=== PATIENT | female | born 1955 | race Hispanic/Latino ===

== ENCOUNTER → 2019-07-03 | Day surgery (SDC) | payer MEDICARE ==
[~2019-07-03] MED LIST: CARAFATE1 GM/10 ML PO; FENTANYL CITRATE/PF 100MCG/2 ML INJ ONE; GABAPENTIN300 MG PO; GLIMEPIRIDE2 MG PO; HYDROCHLOROTHIA25 MG PO; LETROZOLE2.5 MG PO; LIDOCAINE HCL 2% LOCAL INJ 5 ML SDV VIAL INJ ONE; LISINOPRIL10 MG PO; METFORMIN HCL850 MG PO; METOCLOPRAMIDE HCL 10 MG/2ML VIAL ONE; METOPROLOL TART50 MG PO; MIDAZOLAM HCL 2 MG/2 ML VIAL ONE; PANTOPRAZOLE SO40 MG PO; PROPOFOL IV EMULSION 10 MG/ML 50 ML VIAL ONE; REGLAN10 MG PO; ULTRAM50 MG PO; XARELTO20 MG PO
--- OUTSIDE RECORDS SUMMARY | 2019-07-03 08:08 | XMS REPORT ---
Author [facility] Address Unknown Phone Unavailable Care Team Providers Care Carpenter Ship Name Role Phone BAORN MORAES Unavailable Unavailable Payers Payer Name Policy Type Policy Number Effective Date Expiration Date Problems This patient has no known problems. Allergies, Adverse Reactions, Alerts Allergy Name Allergy Type Status Severity Reaction(s) Onset Date Inactive Date Treating Clinician Comments No Known Allergies DA Active U 2013-09-14 00:00:00 Medications This patient has no known medications. Encounters Start Date/Time End Date/Time Encounter Type Admission Type Attending Clinicians Care Facility Care Department Encounter ID 2019-01-24 06:39:00 2019-01-24 06:39:00 [facility] [id number] Results Test Description Test Time Test Comments Text Results Atomic Results Result Comments GLUBED 2018-10-18 13:41:00 GLUBED (test code=GLUBED) 109 mg/dL 74-106 Performed by certified photo booth operator at [facility] BASIC METABOLIC [id number] 11:28:00* Test Item Value Reference Range Comments SODIUM (test code=NA) 145 mmol/L 136-145 POTASSIUM (test code=K) 3.5 mmol/L 3.5-5.1 CHLORIDE (test code=CL) 113.0 mmol/L 98-107 CARBON DIOXIDE (test code=CO2) 24.0 mmol/L 21-32 ANION GAP (test code=GAP) 11.5 10-20 GLUCOSE (test code=GLU) 91 mg/dL 74-106 BLOOD UREA NITROGEN (test code=BUN) 29 mg/dL 7-18 GLOMERULAR FILTRATION RATE (test code=GFR) 50 mL/min >=60 Estimated GFR by using Modified MDRD formula.Chronic kidney disease is defined as either kidney damageor GFR <60 mL/min/1.73 m2 for >3 months. CREATININE (test code=CREAT) 1.10 mg/dL 0.55-1.02 Note change in reference range due to change in reagent. BUN/CREATININE RATIO (test code=BUN/CREA) 26.4 10-20 CALCIUM (test code=CA) 8.9 mg/dL 8.5-10.1 BASIC METABOLIC [id number] 11:21:00* Test Item Value Reference Range Comments SODIUM (test code=NA) 145 mmol/L 136-145 POTASSIUM (test code=K) 3.5 mmol/L 3.5-5.1 CHLORIDE (test code=CL) 113.0 mmol/L 98-107 CARBON DIOXIDE (test code=CO2) mmol/L 21-32 ANION GAP (test code=GAP) 10-20 GLUCOSE (test code=GLU) mg/dL 74-106 BLOOD UREA NITROGEN (test code=BUN) mg/dL 7-18 GLOMERULAR FILTRATION RATE (test code=GFR) mL/min >=60 CREATININE (test code=CREAT) mg/dL 0.55-1.02 BUN/CREATININE RATIO (test code=BUN/CREA) 10-20 CALCIUM (test code=CA) mg/dL 8.5-10.1 CBC W/AUTO [id number] 10:34:00* Test Item Value Reference Range Comments WHITE BLOOD CELL (test code=WBC) 6.6 K/mm3 4.5-12.5 RED BLOOD CELL (test code=RBC) 3.51 mill/mm3 3.7-5.2 HEMOGLOBIN (test code=HGB) 9.4 gram/dL 11.5-15.5 HEMATOCRIT (test code=HCT) 29.7 % 36.0-46.0 MEAN CELL VOLUME (test code=MCV) 84.6 fL 80-98 MEAN CELL HGB (test code=MCH) 26.8 picogram 27.0-33.0 MEAN CELL HGB CONCETRATION (test code=MCHC) 31.6 gram/dL 33.0-36.0 RED CELL DISTRIBUTION WIDTH (test code=RDW) 14.4 % 11.6-16.2 RED CELL DISTRIBUTION WIDTH SD (test code=RDW-SD) 44.3 fL 37.0-51.0 PLATELET COUNT (test code=PLT) 271 K/mm3 150-450 MEAN PLATELET VOLUME (test code=MPV) 10.5 fL 6.7-11.0 NEUTROPHIL % (test code=NT%) 58.6 % 39.0-69.0 IMMATURE GRANULOCYTE % (test code=IG%) 0.2 % 0.0-5.0 LYMPHOCYTE % (test code=LY%) 31.0 % 25.0-55.0 MONOCYTE % (test code=MO%) 8.3 % 0.0-10.0 EOSINOPHIL % (test code=EO%) 1.4 % 0.0-5.0 BASOPHIL % (test code=BA%) 0.5 % 0.0-1.0 NUCLEATED RBC % (test code=NRBC%) 0.0 % 0-0 NEUTROPHIL # (test code=NT#) 3.87 K/mm3 1.8-7.7 IMMATURE GRANULOCYTE # (test code=IG#) 0.01 x10 3/uL 0-0.03 LYMPHOCYTE # (test code=LY#) 2.04 K/mm3 1.0-5.0 MONOCYTE # (test code=MO#) 0.55 K/mm3 0-0.8 EOSINOPHIL # (test code=EO#) 0.09 K/mm3 0.0-0.5 BASOPHIL # (test code=BA#) 0.03 K/mm3 0.0-0.2 NUCLEATED RBC # (test code=NRBC#) 0.00 K/mm3 0.0-0.1 TISSUE [id number] 14:03:00Surgical Pathology Report Case: [id number] Authorizing Provider: Jannet Moraes, Collected: 06/29/2018 08Jevon OLIVA Ordering Location: [facility] Received: 06/29/2018 0846 SERVICES Pathologist: Mercedes Hughes MD Specimens: A) - Lymph Node, Spring, Right Axilla, Right Axillary Spring Lymph Node #1 - 853 B) - Breast, Right, Right breast - long stitch lateral, short stitch superior C) - Breast, Right, right breast upper right lateral margin- stitch young new margin D) - Breast, Right, right breast lower lateral margin- stitch young new margin E) - Breast, Right, right breast medial margin- stitch young new margin A. LYMPH NODE, RIGHT AXILLARY SENTINEL #1, COUNT 853, BIOPSY - ONE LYMPH NODE, NEGATIVE FOR CARCINOMA (0/1)B. BREAST,RIGHT MASTECTOMY - DUCTAL CARCINOMA IN SITU - TUMOR LOCATION : UPPER INNER , CENTRAL AND UPPER OUTER QUADRANTS - GREATEST MACROSCOPIC MEASUREMENT : 66MM - EXTENSIVELY INVOLVING 3 ADJACENT MACROSCOPIC SLICES - NUCLEAR GRADE : 3/3 BY SBR CRITERIA - GROWTH PATTERN : SOLID, CRIBRIFORM, MICROPAPILLARY, PAPILLARY - CENTRAL COMEDO NECROSIS IS IDENTIFIED - ASSOCIATED WITH CALCIFICATIONS - INVOLVING INTRADUCTAL PAPILLOMA - SURGICAL MARGINS : NEGATIVE - ALL MARGINS > 10MM - BIOPSY SITE CHANGES (CLIP X 2) IDENTIFIED - IATROGENIC DISPLACEMENT OF EPITHELIAL CELLS WITHIN BIOPSY SITE - ATYPICAL DUCTAL HYPERPLASIA - FEW SMALL SCATTERED FOCI - ATYPICAL LOBULAR HYPERPLASIA - SMALL FOCUS - USUAL DUCTAL HYPERPLASIA - SMALL PERILOBULAR CAPILLARY HEMANGIOMA - BENIGN BREAST TISSUE ASSOCIATED WITH CALCIFICATIONS - BENIGN SKELETAL MUSCLE - BENIGN SKIN AND NIPPLEC. BREAST, RIGHT UPPER LATERAL MARGIN, EXCISION - SKIN AND UNDERLYING FIBROFATTY TISSUE - NEGATIVE FOR CARCINOMAD. BREAST, RIGHT LOWER LATERAL MARGIN, EXCISION - SKIN AND UNDERLYING FIBR OFATTY TISSUE - NEGATIVE FOR CARCINOMAE. BREAST, RIGHT MEDIAL MARGIN, E XCISION - SKIN AND UNDERLYING FIBROFATTY TISSUE - NEGATIVE FOR CARCINOMA Signing Pathologist Direct Phone Line: [phone] signed by Mercedes Hughes MD on 07/06/2018 at 2:03 PMTUMOR STAGING (P ATHOLOGY) Anatomic site of tumor : Right breastHistologic type : DCIS onlyHistol ogic grade : DCIS only; 3/3 by SBR criteriaTumor size : DCIS only; 66mmPrimary t umor (T) : pTis (DCIS)Lymph node (N) : mZ3Byrrf grouping : 0Margins : NegativeLY MPH NODE SUMMARYTotal # of sentinel lymph nodes : 1Total # of non-sentinel lymph nodes : 0Total # of positive sentinel lymph nodes : 0DCIS OF THE BREAST (Breast DCIS - All Specimens)SPECIMEN Procedure: Total mastectomy Specimen Lat erality: Right TUMOR Tumor Site: Upper outer quadrant Tumor Site: Upper inner quadrant Tumor Site: Central Histologic Type: Ductal car cinoma in situ Size (Extent) of DCIS: Estimated size of DCIS greatest dime nsion in Millimeters (mm) is at least: 66 Millimeters (mm) Architectural Patte rns: Cribriform Architectural Patterns: Micropapillary Architectural Patterns: Papillary Architectural Patterns: Solid Nuclear Grade: Grade III (high) Accessory Findings: Necrosis: Present, central ( expansive "comedo" necrosis) Microcalcifications: Present in DCIS M icrocalcifications: Present in nonneoplastic tissue MARGINS Margins: Uni nvolved by DCIS Distance from Closest Margin in Millimeters (mm): Distan ce is > 10 in Millimeters (mm) Closest Margin: Posterior LYMPH NODES Regional Lymph Nodes: Uninvolved by tumor cells Number of Lymph Nodes Examined: 1 Number of Spring Nodes Examined: 1 PATHOLOGIC STAGE CLASSIFICATION (pTNM, AJCC 8th Edition) TNM Descriptors: Not applicable Primary Tumor (pT): pTis (DCIS) Regional Lymph Nodes (pN): Modifier: (sn): Spring node(s) evaluated Category (pN): pN0 A. 85459 x 1; 78570 x 1B. 00259 x 1C. 84281 x 1D. 44038 x 1E. 84161 x 1Right breast ductal carcinoma in situA. Right axillary sentinel lymph node - 853; B. Right breast; C. Right breast upper right lateral margin; D. Right breast lower lateral margin; E. Right breast medial marginA. Received fresh labeled "right axillary sentinel lymph node 853" consists of a 1.5 x 1 x 0.5 cm, marc-yellow, irregular, soft tissue; one lymph node is identified measuring 1.2 x 0.6 x 0.5 cm. The lymph node is bisected along its long axis, and one touch prep is made for frozen diagnosis as TPA. The entire lymph node is submitted for permanent as A1. ?/ewB. Received fresh labeled with patient's name and "scotht Breast" is a 700 gm simple mastectomy specimen, 17 x 22.5 x 3.5 cm with an unremarkable skin ellipse measuring 20 x 13.5 cm, with everted nipple. The specimen is serially sectioned from medial to lateral into 10 slices. The nipple is in slice #3. The size of the nipple is 0.7 x 0.7 x 0.7 cm. The areolar size is 3 x 2 cm. A 4 x 7 x 7 cm ill-defined fibrotic firm area is present in slices 2 to 5. It is 2 cm away from the deep margin, 3 cm away from the superficial superior margin, 3.5 cm away from the superficial inferior margin. The fibrotic area does not involve the skin. Two clips are identified. One ribbon-shaped clip is identified in slice 2. One E-shaped clip is identified in slice #3. The remaining normal breast tissue is composed of 80% of adipose tissue and 20% of fibrous tissue. Ink code: blue, superficial superior, red, superficial inferior; black deep. Section code: B1 to B2, slice #1B3 to B4, slice #2B5 to B10, fibrotic area in slice #2, clip is identified in B7B11 to B18, fibrotic firm area in slice #3. Clip is identified in cassette B13B19 to B20, nipple hulmhormD80 to B29, fibrotic area in slice #4B30 to B38, fibrotic firm area in slice #5B39 to B41, area adjacent to the firm area in slice #5 and slice #6B42 to B43, leather goods sales representative sections of normal breast in slice #7 and #9B44 to B45, margins slice 2B46 to B47, margins slice 3B48 to B49, margins slice 4 Part C: Received i n formalin labeled as "breast, right" consists of a 5 x 3 x 1.8 cm triangle-shap ed breast tissue with attached skin with a stitch young the new margin. The new margin is right breast, upper right lateral margin. Ink code: true margin black. Opposite side of the true margin: yellow. Tissue is serially sectioned and repr esentative sections are submitted in cassettes C1 to C4. Part D: [facility] labeled as "right breast lower lateral margin, stitch young new margin" i s a 6 x 4 x 1.5 cm triangular shaped breast tissue with attached skin. The stitc h side is inked black. The opposite side is inked yellow. The tissue is serially sectioned and leather goods sales representative sections are submitted in cassettes D1 to D4. Part E: Received in formalin labeled as "right breast medial margin, stitch young new margin" is a 4 x 2.5 x 1 cm triangular shaped breast tissue with attached skin. True margin is inked black. The opposite side is inked yellow. The tissue is s erially sectioned and leather goods sales representative sections are submitted in cassettes E1 to E 4. YY/Dorie. TOUCH PREP LYMPH NODE, RIGHT AXILLARY SENTINEL NODE 853 BIOPSY: - NO METASTATIC CARCINOMA IDENTIFIED ON TOUCH PREP The result is reported by Dr. Mark mcmanus to Dr. Moraes at 10:08 a.m. on June 29, 2018.A-E. Performed.[facility], Department of Pathology, [address] [place] [address], [place] [address], CLJQ-GLUCOSE [id number] 11:08:00* Test Item Value Reference Range Comments POC-GLUCOSE METER (BEAKER) (test rida=5537) 114 mg/dL 70-110 TESTED AT [place] [address] POCT-GLUCOSE [id number] 06:24:00* Test Item Value Reference Range Comments POC-GLUCOSE METER (BEAKER) (test zcyt=3989) 112 mg/dL 70-110 TESTED AT [place] [address] SENTINEL NODE INJECTION, [id number] 15:23:00Reason for exam:->Right breast stage 0 breast cancerFINAL REPORT PROCEDURE: SENTINEL NODE LOCALIZATION - NON IMAGING INDICATION: Right breast cancer PROTOCOL: A total of 4.3 mCi of filtered Tc-99m Lymphoseek was injected intradermally in divided aliquots in the periareolar region of the right breast by the nuclear powerplant mechanic helper. IMPRESSION: Radiopharmaceutical injection for intraoperative sentinel node localization. Signed: Eleno Padilla MDReport Verified Date/Time: 06/28/2018 15:23:01 Reading Location: [address] [place] [address] Reading Room [id number] 12:48:00 RUN DATE: 03/07/18 [facility] PAGE 1 RUN TIME: 1249 Specimen Inqui ry RUN USER: INTERFACE PATIENT: ZORAIDA BLANDON ACCT #: V [id number] LOC: BgHiroHERMINIAU U #: [id number] AGE/SX: 62/F ROOM: RE03/01/18REG DR: French Casillas MD : 56 BED: DIS: STATUS: [facility] TLOC: SPEC #: [id number] RECD: 03/01/18 STATUS: SOUT REQ #: [id number] LUZ: 03/01/18- SUBM DR: French Casillas MD ENTERED: 03/01/18 SP TYPE: STOMACH OTHR DR: Trell Forde MD ORDERED: GROSS COPIES TO: Trell Forde MD [address] [place] [address] French Casillas MD [address] [place] [address] PROCEDURES: GROSS (02/11 04/29-1236) TISSUES: 1. ANASTOMOSIS - BX 2. GASTRIC ULCER - REHAN YP CLINICAL HISTORY COLLECTION DATE: 03/01/2018 ANEMIA; HISTOR Y OF MALIGNANT NEOPLASM AT [facility] FINAL DIAGNOSIS Gastric neville stomosis, cold biopsy: CHRONIC GASTRITIS WITH VERY FOCAL ACTIVITY NEGATIVE FOR INTESTINAL METAPLASIA NEGATIVE FOR HELICOBACTER ORGANISMS NEGATIVE FOR MALIGNANCY Gastric polyp, cold biopsy: CHR ONIC GASTRITIS WITH FOCAL ACTIVITY FOCAL HYPERPLASTIC CHANGE, EDEMA AND R EACTIVE EPITHELIAL CHANGE PRESENT NO HELICOBACTER ORGANISMS IDENTIFIED BY GIEMSA OR IMMUNOHISTOCHEMICAL STAINS NEGATIVE FOR MALIGNANCY RRB/alejandro D [phone], [phone], [phone] CONTINUED ON NEXT PAGE RUN DATE: 03/07/18 [facility] PAGE 2 RUN TIME: 1249 Specimen Inquiry RUN USER: INTERFACE SPEC #: [id number] PATIENT: ZORAIDA BLANDON JANNET #[id number] (Continued)-------- ---- MACROSCOPIC Specimen (1) is received in formalin, labeled wit h the patient's name, identified as "anastomosis gastric cold bx", and consist s of multiple fragments of marc-pink biopsy tissue measuring 1.2 cm in aggregat e, entirely submitted as (1) for H E and giemsa stains. Specimen (2) is received in formalin, labeled with the patient's name, identified as "gastric polyp cold bx", and consists of multiple fragments of marc-pink biopsy tissue measuring 0.6 cm in aggregate, entirely submitted as (2) for H E and giemsa st knapp GROSS PERFORMED AT [facility] [address] [place] [address] (p)[phone] MICROSCOPIC MICROSCOPIC PERFORMED AT [facility] All of the stains, including any controls performed, stain appropriately. [facility] [address] [place] [address] (p)[phone] PERFORMING SITE Diagnosis performed at: [facility], [address] [place] [address] Sign ed SIGNATURE ON FILE Johny Franco 03/07/18 1248 - END OF REPORT STOMACH,RESECTION NOT [id number] 13:02:00 RUN DATE: 12/31/17 [facility] PAGE 1 RUN TIME: 1302 Specimen Inqui ry RUN USER: INTERFACE PATIENT: ZORAIDA BLANDON ACCT #: [id number] LOC: ELIZABETH U #: [id number] AGE/SX: 62/F ROOM: [facility] RE12/23/17REG DR: Frederic Cruz MD : 57 BED: A DIS: 12/29/17 STATUS: DIS IN TLOC: SPEC #: [id number] RECD: 12/23/17 STATUS: SHABNAM REQ #: [id number] LUZ: 12/23/17- SUBM DR: Frederic Cruz MD ENTERED: 12/23/17 SP TYPE: STOM NOT OTHR DR: Trell Forde MD, James Le Thanh MD TUMOR REGISTRYORDERED: GROSS COPIES TO: Trell Forde MD [address] [place] [id number] Frederic Cruz MD [address] [facility] [address] [place] [address] Devon Enamorado MD [address] [place] [address] TUMOR RATNA STRY MARKERS: INTRADEPARTMENTAL CONSULT, MALIGNANCY PROCEDURES: GROSS (12/31/17- 1103) TISSUES: 1. VAGUS NERVE POSTERIOR GASTRIC BRANCHES 2. VA CARLIN NERVE ANTERIOR GASTRIC BRANCHES 3. STOMACH, NOS CLINICAL HIS TORY COLLECTION DATE: 12/23/17 STOMACH CANCER COMMENT [employer] Surgical Pathology Cancer Case Summary- Endocrine-Neuroendocrine Tumors of the Stomach Procedure: Partial gastrectomy, distal CO NTINUED ON NEXT PAGE RUN DATE: 12/31/17 [facility] PAGE 2 RUN TIME: 1302 Specimen Inquiry RUN USER: INTERFACE SPEC #: [id number] PATIENT: ZORAIDA BLANDON #[id number] (Continued) COMMENT (Continued) Tumor site: Gastric pylorus Tumor size: Greatest dimension (cm): 0.25 cm Tumor focality: Unifocal 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, Well differentiated neuroendocrine tumor Mitotic rate: Less than 2 mitosis per 2 square mm Ki-67 labeling index: Less than 3% Tumor extension: Tumor involves lamina propria Margins: Proximal ave n: Uninvolved by tumor Distal margin: Invol jose by tumor Omental margin: Uninvolved by tumor Lymphovas cular invasion: Not identified Perineural invasion: Not identified Regional lymph nodes: Number of lymph nodes involved: 0 Number of lymph nodes examined: 17 Pathologic Stage Classification (pTNM, AJCC 8th edition): pT1 pN0 [facility] Approved Surgical Pathology Cancer Case Summary- Gastrointestinal-Stomach Procedure: Partial ga strectomy, distal Tumor site: Not specified Tumor size: ([id number], biopsy, 0.5 cm) Histologic type: No residual tumor present, previous diagnosis of invasive adenocarcinoma Margins: All margins uninvolved by invasive carcinoma and dysplasia, proximal, distal, omental Treatment effect: No known presurgical therapy Lymphovascular invasion: Not identified Pe rineural invasion: Not identified Regional lymph nodes: Number of lymph nodes involved: 0 Number of lymph nodes examined: 17 Pathologic Stage Classification (pTNM, AJCC 8th edition): pT1a pN0 FINAL DIAGNOSIS Nerve, posterior vagus, segmental resection: P ERIPHERAL NERVE TISSUE AND UNREMARKABLE ADIPOSE TISSUE Nerve, anterior vagus, segmental resection: PERIPHERAL NERVE TISSUE AND UNREMARKABLE CARSON POSE TISSUE CONTINUED ON NEXT PAGE -------- ----RUN DATE: 12/31/17 [facility] PAGE 3 RUN TIME: 1302 Specimen Inquiry RUN USER: INTERFACE SPEC #: [id number] PATIENT: ZORAIDA BLANDON #[id number] (Continued) FINAL DIAGNOSIS (Continued) Stomach, subtotal gastrectomy: SLIGHTLY INVAGIN ATED AREA IN GASTRIC MUCOSA SUGGESTIVE OF PREVIOUS BIOPSY, see comment NO RESIDUAL ADENOCARCINOMA IDENTIFIED IN SECTIONS OF GASTRIC TISSUE PROXIMAL AND DISTAL SURGICAL MARGINS OF RESECTION, NEGATIVE FOR ADENO CARCINOMA 2.5 MM FOCUS OF WELL DIFFERENTIATED NEUROENDOCRINE TUMOR (G1) I DENTIFIED AT DISTAL MARGIN OF RESECTION, see microscopic description an d comment NO LYMPHOVASCULAR INVASION IDENTIFIED NO PERINEURAL INVA YAAKOV IDENTIFIED SEVENTEEN LYMPH NODES WITH REACTIVE FEATURES, NEGATIVE FO R MALIGNANCY HYPERPLASTIC CHANGE IDENTIFIED IN THREADING MACHINE OPERATOR SECTIONS OF GASTRIC MUCOSA CLINICAL CORRELATION REQUIRED RRB/sm,k ae A [phone], [phone] MACROSCOPIC The first specimen is received in formalin, labeled with the patient's name, and identified as "post erior vagus". It consists of a marc elongated fragment of tissue measuring 1.2 X 0.3 X 0.2 cm. It is submitted for microscopic examination in cassette (1). The second specimen is received in formalin, labeled with the patient's n zoila, and identified as "anterior vagus". It consists of a pool-marc fragment o f elongated fragment of tissue measuring 0.7 X 0.3 X 0.2 cm. It is submitted in its entirety for microscopic examination in cassette (2). The third s pecimen is received in formalin, labeled with the patient's name, and identifi ed as "subtotal gastrectomy". The specimen consists of a portion of stomach w ith attached adipose tissue and omentum. The stomach segment measures 20.5 cm along the greater curvature and 10 cm along the lesser curvature. The distal and proximal ends of the stomach are open. There is some attached adipose ti ssue along the lesser curvature which measures 7 X 3 X 0.7 cm and adipose tiss ue along the greater curvature which measures up to 28 X 15 X 2 cm. The speci men is opened along the greater curvature. It will be allowed to fix before s ampling. A small slightly depressed area is identified 6.2 cm from the pr oximal margin of resection and 8.0 cm from the distal margin of resection. Th e base of this area is slightly erythematous. This area measures 0.5 X 0.4 cm in diameter. After fixation the mucosal surface is marc with unremarkable folds. A very subtle prominent fold is seen 2 cm from the proximal margin of resection but no CONTINUED ON NEXT PAGE --- ---------RUN DATE: 12/31/17 [facility] PAGE 4 RUN TIME: 1302 Specimen Inquiry RUN USER: INTERFACE SPEC #: [id number] PATIENT: ZORAIDA BLANDON CATE #[id number] (Continued) MACROSCOPIC (Continued) other focal lesions are appreciated. No enlarged lymph n odes are identified in the attached fatty tissue. Section Code: 3A, re presentative distal margin of resection, en face; 3B- leather goods sales representative proximal margin of resection near prominent mucosal fold, en face; 3C- section of gastr ic mucosa with prominent mucosal fold; 3D- sections of gastric mucosa with sli ght erythematous discoloration; 3E-3R- fatty tissue from lesser curvature sub mitted for possible lymph nodes; 3S-3Z- fatty tissue from greater curvature w ith possible lymph nodes; 3AA and 3BB- possible lymph nodes, 3CC- one lymph no de bisected, 3DD- two possible lymph nodes, 3EE- additional fatty tissue and 3 FF- additional fatty tissue, 3GG-3JJ- remainder of proximal margin en face, 3K K-3LL- additional sections of gastric mucosa, 3MM-3TT- additional possible lym ph nodes, 3UU-3BBB- additional tissue for possible lymph nodes. GROSS PE RFORMED AT [facility] [address] [facility] [place], [place] [address] (p)[phone] MICROSCOPIC Sections of the first and second specimens show unremarkable peripheral nerve bundles kristen rounded by fibrofatty tissue. An indented area was seen in the stomach that w as felt to possibly be the previous biopsy site. The histologic sections from this area show an invaginated area but significant hemorrhage and fibrosis is not seen in this area. No other discrete areas grossly suggestive of biopsy site were identified. No other discrete nodules or masses were identified by gross examination in the stomach. No residual adenocarcinoma is identified in any of the sections of the stomach or the submitted lymph nodes. The lymph n odes identified are very small with the exception of one lymph node that measu res 0.5 cm in diameter. The tissue was extensively examined for lymph nodes w ith a total of 54 blocks of tissue submitted but only seventeen lymph nodes ar e identified. Incidentally, a small well differentiated neuroendocrine t umor is identified in a section submitted from the distal margin of resection. This focus measures 2.5 mm in greatest diameter with no extension into the s ubmucosa. The lesion is formed of cells with small, bland, round to slightly ovoid nuclei, fine chromatin, and pale eosinophilic cytoplasm. The tumor cell s are arranged in cribriform and trabecular patterns. Paraffin embedded tissu e was submitted to ADX for an immunoperoxidase stain for synaptophysin, This s hows strong diffuse staining within the lesion confirming neuroendocrine diffe rentiation. Very rare mitotic figures are identified (one mitotic figure per ten high power miramontes). The immunoperoxidase stain for Ki-67 shows a prolifer ation rate of less than 3%. These features are compatible with a well differe ntiated (G1) neuroendocrine tumor. No aggregates of cells suggestive of metas tatic CONTINUED ON NEXT PAGE RU N DATE: 12/31/17 [facility] PAGE 5 RUN TIME: 1302 Specimen Inquiry RUN USER: INTERFACE SPEC #: [id number] PATIENT: ZORAIDA BLANDON #[id number] (Continued) MICROSCOPIC (Co ntinued) neuroendocrine tumor are seen in any of the lymph nodes examined. C linical correlation is required. Intradepartmental consultation: JUAN ALBERTOW/MARI MICROSCOPIC PERFORMED AT [facility] All of the stains, incl uding any controls performed, stain appropriately. [facility] [address] [facility], [place] [address] (P)[phone] PERFORMING SI TE Diagnosis performed at: [facility] [facility] [address] [place] [address] Si griselda SIGNATURE ON FILE JoanJohny Anne 12/31/17 1302 END OF REPORT STOMACH,RESECTION NOT [id number] 13:02:00 RUN DATE: 01/03/18 [place] [facility] PAGE 1 RUN TIME: 1628 Specimen Inqui ry RUN USER: INTERFACE PATIENT: ZORAIDA BLANDON JANNET ACCT #: [id number] LOC: [facility] U #: [id number] AGE/SX: 62/F ROOM: [facility]6 RE12/23/17REG DR: Frederic Cruz MD : 57 BED: A DIS: 12/29/17 STATUS: DIS IN TLOC: SPEC #: [id number] RECD: 12/23/17 STATUS: SHABNAM RESpeedy #: [id number] LUZ: 12/23/17- SUBM DR: Frederic rCuz MD ENTERED: 12/23/17 SP TYPE: STOM NOT OTHR DR: Trell Forde MD, James Le Thanh MD TUMOR REGISTRYORDERED: GROSS COPIES TO: Trell Forde MD [address] [facility] [facility] [address] [place] [address] Frederic Cruz MD [address] [facility] [address] [place], [place] [id number] Deovn Enamorado MD [address] [place] [address] TUMOR RATNA STRY MARKERS: INTRADEPARTMENTAL CONSULT, MALIGNANCY PROCEDURES: GROSS (12/31/17- 1103) TISSUES: 1. VAGUS NERVE POSTERIOR GASTRIC BRANCHES 2. VA CARLIN NERVE ANTERIOR GASTRIC BRANCHES 3. STOMACH, NOS ADDENDUM FIND INGS Addendum #1 Entered: 01/03/18 This addendum is issued to make an addition to the section code. Block 3CCC, additional section of dis augusto margin, en face. The original diagnosis remains otherwise unchanged. 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 Procedure: Partial gastrectomy, dista l Tumor site: Gastric pylorus Tumor size: G reatest dimension (cm): 0.25 cm Tumor focality: Unif ocal 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, Wel l differentiated neuroendocrine tumor Mitotic rate: Less t lopez 2 mitosis per 2 square mm Ki-67 labeling index: Less than 3% Tumor extension: Tumor involves lamina propria Margins: Proximal margin: Uninvolved by tumor Dist al margin: Involved by tumor Omental margin: Uninvolved by tumor Lymphovascular invasion: Not identified Noemí neural invasion: Not identified Regional lymph nodes: Number of lymph nodes involved: 0 Number of lymph nodes examined: 17 Path ologic Stage Classification (pTNM, AJCC 8th edition): pT1 pN0 [employer] Approved Surgical Pathology Cancer Case Summary- Gastrointestinal-Stomach Procedure: Partial gastrectomy, distal Tumor site: Not specified Tumor size: ([id number], biopsy, 0.5 cm) Histologic type: No residual tumor present, previous di agnosis of invasive adenocarcinoma Ave ns: All margins uninvolved by invasive carcinoma and CONTINUED ON NEXT PAGE RUN DATE : 01/03/18 [facility] PAGE 3 RUN TIME: 1628 Specimen Inquiry RUN USER: INTERFACE SPEC #: [id number] PATIENT: ZORAIDA BLANDON #[id number] (Continued) COMMENT (Continue d) dysplasia, proximal, distal, omental Treatment effect: No known presurgical therapy Lymphovascular invasion: Not identified Perineural invasion: Not ident ified Regional lymph nodes: Number of lymph nodes involved: 0 Number of lymph nodes examined: 17 Pathologic Stage Classification (pTN M, AJCC 8th edition): pT1a pN0 FINAL DIAGNOSIS Nerve, posterio r vagus, segmental resection: PERIPHERAL NERVE TISSUE AND UNREMARKABLE AD IPOSE TISSUE Nerve, anterior vagus, segmental resection: PERIPH ERAL NERVE TISSUE AND UNREMARKABLE ADIPOSE TISSUE Stomach, subtotal ga strectomy: SLIGHTLY INVAGINATED AREA IN GASTRIC MUCOSA SUGGESTIVE OF PREV IOUS BIOPSY, see comment NO RESIDUAL ADENOCARCINOMA IDENTIFIED I N SECTIONS OF GASTRIC TISSUE PROXIMAL AND DISTAL SURGICAL MARGINS OF RESE CTION, NEGATIVE FOR ADENOCARCINOMA 2.5 MM 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 It consists of a marc elongated fragment of tissue measuring 1.2 X 0.3 X 0.2 cm. It is submitted for microsco pic examination in cassette (1). The second specimen is received in form roshni, labeled with the patient's name, and identified as "anterior vagus". It consists of a pool-marc fragment of elongated fragment of tissue measuring 0.7 X 0.3 X 0.2 cm. It is submitted in its entirety for microscopic examination in cassette (2). CONTINUED ON NEXT PAGE --- ---------RUN DATE: 01/03/18 [place] [facility] PAGE 4 RUN TIME: 1628 Specimen Inquiry RUN USER: INTERFACE SPEC #: [id number] PATIENT: ZORAIDA BLANDON #[id number] (Continued) MACROSCOPIC (Continued) The third specimen is received in formalin, labeled w ith the patient's name, and identified as "subtotal gastrectomy". The specime n consists of a portion of stomach with attached adipose tissue and omentum. The stomach segment measures 20.5 cm along the greater curvature and 10 cm xiomy ng the lesser curvature. The distal and proximal ends of the stomach are open . There is some attached adipose tissue along the lesser curvature which priyank ures 7 X 3 X 0.7 cm and adipose tissue along the greater curvature which measu res up to 28 X 15 X 2 cm. The specimen is opened along the greater curvature. It will be allowed to fix before sampling. A small slightly depressed area is identified 6.2 cm from the proximal margin of resection and 8.0 cm fr om the distal margin of resection. The base of this area is slightly erythema tous. This area measures 0.5 X 0.4 cm in diameter. After fixation the mu cosal surface is marc with unremarkable folds. A very subtle prominent fold is seen 2 cm from the proximal margin of resection but no other focal lesions are appreciated. No enlarged lymph nodes are identified in the attached fatty ti ssue. 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, en fa ce; 3B- leather goods sales representative proximal margin of resection near prominent mucosal fol d, en face; 3C- section of gastric mucosa with prominent mucosal fold; 3D- sec tions of gastric mucosa with slight erythematous discoloration; 3E-3R- fatty tissue from lesser curvature submitted for possible lymph nodes; 3S-3Z- fatty tissue from greater curvature with possible lymph nodes; 3AA and 3BB- possible lymph nodes, 3CC- one lymph node bisected, 3DD- two possible lymph nodes, 3EE- additional fatty tissue and 3FF- additional fatty tissue, 3GG-3JJ- remainder of proximal margin en face, 3KK-3LL- additional sections of gastric mucosa, 3MM-3TT- additional possible lymph nodes, 3UU-3BBB- additional tissue for po ssible lymph nodes. GROSS PERFORMED AT [facility] [address] [facility], [place] [address] (P)[phone] MICROSCOPIC Sections of the first and second specimens show unremarka ble peripheral nerve bundles surrounded by fibrofatty tissue. An indented are a was seen in the stomach that was felt to possibly be the previous biopsy sit e. The histologic sections from this area show an invaginated area but signif icant hemorrhage and fibrosis is not seen in this area. No other discrete are as grossly suggestive of biopsy site were identified. No other discrete nodul es or masses were identified by gross examination in the stomach. No residual adenocarcinoma is identified in any of the sections of the stomach or the sub mitted lymph nodes. CONTINUED ON NEXT PAGE RUN DATE: 01/03/18 [facility] PAGE 5 RUN TIME: 1628 Specimen Inqu iry RUN USER: INTERFACE SPEC #: [id number] PATIENT: ZORAIDA BLANDON #[id number] (Continued) MICROSCOPIC (Continued) The lymph nodes identified are very small with the ex ception of one lymph node that measures 0.5 cm in diameter. The tissue was ex tensively examined for lymph nodes with a total of 54 blocks of tissue submitt ed but only seventeen lymph nodes are identified. Incidentally, a smal l well differentiated neuroendocrine tumor is identified in a section submitte d from the distal margin of resection. This focus measures 2.5 mm in greatest diameter with no extension into the submucosa. The lesion is formed of cells with small, bland, round to slightly ovoid nuclei, fine chromatin, and pale e osinophilic cytoplasm. The tumor cells are arranged in cribriform and trabecu lar patterns. Paraffin embedded tissue was submitted to [facility] for an immunopero xidase stain for synaptophysin, This shows strong diffuse staining within the lesion confirming neuroendocrine differentiation. Very rare mitotic figures a re identified (one mitotic figure per ten high power miramontes). The immunoperox idase stain for Ki-67 shows a proliferation rate of less than 3%. These featu res are compatible with a well differentiated (G1) neuroendocrine tumor. No a ggregates of cells suggestive of metastatic neuroendocrine tumor are seen in a ny of the lymph nodes examined. Clinical correlation is required. Intra departmental consultation: JUAN ALBERTOW/MARI MICROSCOPIC PERFORMED AT [facility] All of the stains, including any controls performed, stain appropriat altagracia. [facility] [address] [place] [id number] [phone]) [phone] PERFORMING SITE Diagnosis performed at: [facility], [address] [place] [address] Signed SIGNATURE ON FILE Johny Franco 12/31/17 1302 END OF REPORT
--- OUTSIDE RECORDS SUMMARY | 2019-07-03 08:08 | XMS REPORT | Summary of Care ---
Author Author [facility] Organization [facility] Address Unknown Phone Unavailable Care Team Providers Care Junior Linux Administrator Name Role Phone Trell Forde MD PCP Reason for Referral * Radiology Services (Routine) Referred By Contact Referred To Contact Status Reason Specialty Diagnoses / Procedures Jose Brito PA-C [address] [place] [address] [facility] [address], [address] [place] [address] Pending Radiology Diagnoses Ductal carcinoma in situ (DCIS) of right breast P rocedures MAMMO 3D DIAGNOSTIC LEFT Reason for Visit * Reason Comments Breast Cancer - DCIS Encounter Details Care Team Description Date Type Department Jannet Moraes MD [address] [id number] Breast Cancer - DCIS 01/11/2019 Office Visit [facility] Damian Dubon [facility] [address], [address] [place] [address] Allergies Comments Active Allergy Reactions Severity Noted Date Neck pain, pain and trouble functioning Codeine Other (See High 06/29/2018 Comments) documented as of this encounter (statuses as of 01/11/2019) Medications End Date Status Medication Sig Dispensed Refills Start Date Active metformin (GLUCOPHAGE) Take 850 mg 0 850 MG tablet by mouth daily. Active Metoprolol Succinate 100 Take 100 mg 0 MG CS24 by mouth daily. Active hydrochlorothiazide Take 50 mg by 0 (HYDRODIURIL) 50 MG mouth daily. tablet Active lisinopril (PRINIVIL, Take 40 mg by 0 ZESTRIL) 40 MG tablet mouth daily. Active glimepiride (AMARYL) 1 MG 1 mg every 0 tablet morning. Active Rivaroxaban (XARELTO) 20 daily. 0 MG TABS Active anastrozole (ARIMIDEX) 1 Take 1 mg by 0 MG tablet mouth daily. Active pantoprazole (PROTONIX) Take 20 mg by 0 20 MG tablet mouth daily. documented as of this encounter (statuses as of 01/11/2019) Active Problems Problem Noted Date Preop cardiovascular exam 06/22/2018 Overview: Patient with shortness of breath and multiple cardiac risk factors including HTN, DM type 2, HLD. PLAN: 1. Schedule for a lexiscan MPI to evaluate for ischemic CAD. 2. Schedule for an echocardiogram to evaluate LV function. Hypertension 06/22/2018 Overview: Controlled on hydrochlorothiazide, lisinopril 40 mg and metoprolol succinate 100 mg daily. PLAN 1. Continue current medications. Hyperlipidemia 06/22/2018 Overview: Hx of HLD, previously on statins but stopped years ago. PLAN: 1. Check routine labs. History of DVT (deep vein thrombosis) 06/22/2018 Overview: History of DVT on Xarelto PLAN: 1. Continue follow up with cleaning specialist (has appt today) and discuss xarelto management pre-op with them. Ductal carcinoma in situ (DCIS) of right breast 06/21/2018 documented as of this encounter (statuses as of 01/11/2019) Social History Date Tobacco Use Types Packs/Day Years Used Never Smoker Smokeless Tobacco: Never Used Drinks/Week oz/Week Comments Alcohol Use No Alcohol Habits Answer Date Recorded How often do you have a drink containing alcohol? Never 06/21/2018 How many drinks containing alcohol do you have on Not asked a typical day when you are drinking? How often do you have six or more drinks on one Not asked occasion? Sex Assigned at Date Recorded Not on file Industry Job Start Date Occupation Not on file Not on file Not on file Travel End Travel History Travel Start No recent travel history available. documented as of this encounter Last Filed Vital Signs Reading Time Taken Comments Vital Sign 116/72 01/11/2019 8:57 AM CDT Blood Pressure 70 01/11/2019 8:57 AM CDT Pulse 37.1 C (98.8 F) 01/11/2019 8:57 AM CDT Temperature 16 01/11/2019 8:57 AM CDT Respiratory Rate - - Oxygen Saturation - - Inhaled Oxygen Concentration 69.9 kg (154 lb) 01/11/2019 8:57 AM CDT Weight 152.4 cm (5') 01/11/2019 8:57 AM CDT Height 30.08 01/11/2019 8:57 AM CDT Body Mass Index documented in this encounter Progress Notes * Jose Brito PA-C - 01/11/2019 9:00 AM CDT MD Jose Newby PA-C Division of General Surgery/Surgical Oncology [place] [id number] [facility], [address] [place] [address] BREAST SURGICAL ONCOLOGY Date: 01/11/2019 Referring Physician: No ref. provider found Chief Complaint: DCIS right breast History of Present Illness: Ms. Bess is a very lore 63 y.o. year-old woman t hat presents for her second POV from surgery for DCIS on 06/29/18. 01/11/19: Patient is here for 6 month follow up. She has not been able to get her prosthesis due to insurance problems. She is scheduled for camera swallow study as she has continued anemia that they cannot identify the cause. 07/13/2018: Patient states she still has some minimal pain occasionally but is not taking anything for pain regularly. She has been having upset stomach and diarr hea after eating due to her gastrectomy and hemicolectomy. She said after an epi sode of diarrhea at 4 am she was dizzy and fell trying to get into bed. Otherwis e, patient states she is doing well and denies any fever, chills, or drainage fr om surgical site. 07/06/2018: Patient is s/p right mastectomy with sentinel LN biopsy. Patient stat es her drain is putting out about 20 mL of fluid daily. She is having some pain, but no fever or chills. The pathology was not available to review today. 06/21/2018: She states she gets annual mammograms and they have all been normal in the past. The lesion in the right breast was discovered on screening mammography. She denies history of a previous breast biopsy aside from the right breast biops y on 05/30/2018. To her knowledge, she has never been diagnosed with a history of ADH/ALH, DCIS o r LCIS. She denies any history of breast or chest wall radiation. She denies nipple discharge, skin or nipple changes (dryness, scaling, cracking or bleeding) and no skin puckering. She has not palpated a breast mass or a mass in the axilla. There is no height or weight on file to calculate BMI. She has no family history of breast cancer or ovarian cancer. She is , menarche at 14, parity at 21, menopause in 1988. She positive history of hormone replacement use of estrogen for about 3-4 years. She currently reports she has mild pain in the right breast which she says august e because of her right shoulder arthritis and knowing that she has something in the breast now. She said the pain is a hot/burning sensation and rates it a 4/10 . She states it is worse with movement and nothing makes it feel better. She has undergone the following work-up: Mammogram, screening (): Needs additional imaging 8cm cluster of calcification in right rbeast at 1 o'clock middle depth 6 cm FN i s indeterminate Mammogram, diagnostic (05/09/2018): 8.6 cm x 8 cm x 4 cm segmental pleomorphic calcifications in the right breast ar e suspicious They involve the medial and central breast and extend into the nipple. The U/S w ill be performed for further eval Ultrasound (05/09/2018): There is a 1.5 area in The right breast central to the nipple middle depth with suspicious microcalcifications There is also a 1 cm area in the right breast at 3 o'clock middle depth 3 cm FN with suspicious microcalficiations No lymphadenopathy in the axillary or internal mammary janice basins US guided biopsy recommended Biopsy, ultrasound-guided (05/30/2018): US guided biopsy of the 1.5 cm mass in the right breast central to the nipple mi ddle depth, Malignant DCIS, intermediate grade solid and cribriform pattern 1cm mass in right breast at 3 o'clock middle depth 3 cm from the nipple showed m alignant DCIS, intermediate grade solid and cribriform pattern DCIS spans over area of 9 x 8 x 4 cm. It also extends into the nipple ER + GA neg Medications: Current Outpatient Medications Medication Sig Dispense Refill anastrozole (ARIMIDEX) 1 MG tablet Take 1 mg by mouth daily. glimepiride (AMARYL) 1 MG tablet 1 mg every morning. hydrochlorothiazide (HYDRODIURIL) 50 MG tablet Take 50 mg by mouth daily. lisinopril (PRINIVIL, ZESTRIL) 40 MG tablet Take 40 mg by mouth daily. metformin (GLUCOPHAGE) 850 MG tablet Take 850 mg by mouth daily. Metoprolol Succinate 100 MG CS24 Take 100 mg by mouth daily. pantoprazole (PROTONIX) 20 MG tablet Take 20 mg by mouth daily. Rivaroxaban (XARELTO) 20 MG TABS daily. No current facility-administered medications for this visit. Allergies: Allergies Allergen Reactions Codeine Other (See Comments) Neck pain, pain and trouble functioning Review of Systems: The patient completed a 16-point review of systems intake form, which was review ed by me with the patient and scanned into the patients chart under the media walter b. I have summarized the findings from this intake form -- all symptoms are negativ e unless denoted with a (+) as below: General: pain, weight loss (2/2 to subtotal gastrectomy) Skin: Negative Eyes: Negative Ears/Nose/Mouth: Negative Lungs: Negative Heart: Negative Gastro-intestinal: diarrhea Genitourinary: Negative Musculoskeletal: arthritis, muscle ache/pain, weakness Endocrine: negative Neurological: Negative Mental health: Negative Male reproductive: Negative Female reproductive: Negative Breast: as documented in the above in the HPI Heme/lymph: anemia Past medical history: Past Medical History: Diagnosis Date Anemia Arthritis Breast cancer (HCCode) Diabetes (HCCode) DVT (deep venous thrombosis) (HCCode) 2018 Gastric cancer (HCCode) 2018 H. pylori infection History of chemotherapy History of colonoscopy 10/12/2017 Normal History of mammogram 03/30/2018 Abnormal Hypertension Past surgical history: Past Surgical History: Procedure Laterality Date HX ABDOMINAL HERNIA REPAIR 1979 HX APPENDECTOMY 1976 HX CARPAL TUNNEL RELEASE Bilateral HX CERVICAL FUSION HX SECTION HX COLECTOMY Right 1976 HX GASTRECTOMY 10/2017 HX HYSTERECTOMY W/OOPHORECTOMY 1977 HX MASTECTOMY Right 06/29/2018 HX TOTAL KNEE REPLACEMENT Left 04/2017 HX TUBAL LIGATION Family History: Family History Problem Relation Name Age of Onset Hypertension Mother Diabetes Mother Diabetes Father Hypertension Father Other (Cardiac Bypass) Father Breast Cancer Neg Hx Ovarian Cancer Neg Hx Social History: Social History Socioeconomic History Marital status: Spouse name: Not on file Number of children: 3 Years of education: Not on file Highest education level: Not on file Occupational History 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 Social Needs Financial resource strain: Not on file Food insecurity: Worry: Not on file Inability: Not on file Transportation needs: Medical: Not on file Non-medical: Not on file Tobacco Use Smoking status: Never Smoker Smokeless tobacco: Never Used Substance and Sexual Activity Alcohol use: No Frequency: Never Drug use: Not on file Sexual activity: Not on file Lifestyle Physical activity: Days per week: Not on file Minutes per session: Not on file Stress: Not on file Relationships Social connections: Talks on phone: Not on file Gets together: Not on file Attends jewish service: Not on file Active member of club or organization: Not on file Attends meetings of clubs or organizations: Not on file Relationship status: Not on file Intimate partner violence: Fear of current or ex partner: Not on file Emotionally abused: Not on file Physically abused: Not on file Forced sexual activity: Not on file Other Topics Concerns: Not on file Social History Narrative Not on file Physical Exam: BP 116/72 (BP Location: left arm, Patient Position: Sitting, Cuff Size: regular) | Pulse 70 | Temp 98.8 F (37.1 C) (Oral) | Resp 16 | Ht 5' (1.524 m) | Wt 154 lb (69.9 kg) | BMI 30.08 kg/m GENERAL: Alert and oriented, no acute distress, well nourished, sitting comforta alfredito on the exam table EYES: extraocular muscles were intact, anicteric sclera, pupils equal and round HEAD/EARS/NOSE/MOUTH/THORAT: Head was atraumatic and normocephalic HEART: Regular rhythm and rate. LUNGS: Air entry was good, respirations were clear bilaterally. ABDOMEN: Soft and nontender, bowel sounds were present. No hepatosplenomegaly. MUSCULOSKELETAL: There was no gross deformity. There was full range of motion i n all the extremities. There was no edema. SKIN: No obvious skin lesions noted on the chest, back or arms. Previous surgica l scars to lower abdomen BREASTS: The breasts were examined with the patient supine and sitting with the shoulders rolled forward and back and with the arms raised overhead. There were no areas of erythema, puckering of the skin, no peau d'orange Right breast surgically absent. Scar well healed. Excess skin laterally On palpation, the left breast was smooth and soft with no discreet masses noted. The left nipple was everted without scaling, erythema, deviation of shape, blee ding or discharge. The areola appeared normal without reddening or thickening. LYMPH NODE BASINS: There was no palpable cervical, supraclaviular, infraclavicular or axillary lym phadenopathy on the right side. There was no palpable cervical, supraclaviular, infraclavicular or axillary lymp hadenopathy on the left side. NEUROLOGICAL: There was no focal deficit. Cranial nerves II through XII were shelly ssly intact. PSYCHIATRIC: oriented to person, place, and time. The patient was able to demons trate good judgement and reason, without abnormal affect or abnormal behaviors d uring the exam. Diagnostic Exams: Laboratory: She has no labs available for review in the chart or in outside records that she brought today. Radiology: I reviewed the images and the reports which are listed in the HPI. Pathology: No surgical pathology available to view. Diagnosis: DCIS right breast, ER + GA Neg Assessment: Lillian Bess is a very lore 63 y.o. year-old woman with DCIS of the right breast who is s/p right mastectomy with sentinel lymph node biopsy. A second prescription for prosthesis was provided with resources included [employer] and [employer]. Patient to return in 6 months for same day left breast mammogram. Discussed option to see plastic surgeon for reconstruction and revision of exces s skin, but she does not want to meet at this time. Patient being worked up for unknown cause of anemia and is scheduled for camera swallow study. Plan: - patient to return in 6 months with left mammo on same day - prosthesis rx provided I spent 25 minutes with the patient; >50% (15 minutes) of that time was spent on counseling and in coordination of care. They synposis of my discussion is detailed in the assessment portion of this note (above). Jose Brito PA-C documented in this encounter Plan of Treatment Order Schedule Name Type Priority Associated Diagnoses Expected: 01/11/2019, Expires: 07/12/2020 MAMMO 3D DIAGNOSTIC LEFT Imaging Routine Ductal carcinoma in situ (DCIS) of right breast Health Maintenance Due Date Last Done Comments COLON CANCER SCREENIN1956 COLONOSCOPY MAMMOGRAM ANNUAL 1956 MEDICARE AWV 1956 TETANUS SHOT (ADULT) 07/29/1971 ANNUAL DIABETIC FOOT EXAM 1974 ANNUAL DIABETIC 1974 RETINOPATHY SCREENING BMI FOLLOW UP PLAN 1974 HEPATITIS C SCREENING 1974 HIV SCREENING 1974 CERVICAL CANCER SCREENING 1977 3 YEAR FOLLOW UP FLU VACCINE > 6 MONTHS 11/10/2018 documented as of this encounter Results Not on filedocumented in this encounter Visit Diagnoses Diagnosis Ductal carcinoma in situ (DCIS) of right breast - Primary documented in this encounter Insurance Type Payer Benefit Subscriber ID Effective Phone Address Plan / Dates Group Medicare [employer] MMP - STAR xxxxxxxxx 2014-P [address] [address] [place] [address] (Home) [place] [address] documented as of this encounter"
[2019-07-03 09:15] VITALS: BP 126/79
--- NOTE | 2019-07-03 10:09 | Operative Report ---
DATE OF PROCEDURE: 07/03/2019 SURGEON: French Casillas MD PROCEDURE: EGD with biopsies. INDICATIONS FOR SURGERY: Iron deficiency anemia, history of gastric cancer, nausea/occasional vomiting. MEDICATIONS: The patient was done under MAC, please see anesthesiologist's note. PROCEDURE IN DETAIL: With the patient in left lateral decubitus position, a flexible fiberoptic Olympus gastroscope was introduced into the esophagus under direct visualization without any difficulty. The esophagus appeared to be within normal limits. The scope was then advanced with ease into the stomach and the patient is status post gastrectomy and the anastomosis was noted about approximately 10 cm distal to the GE junction, it was intact. There was some minimal focal nodularity and biopsies were obtained. The enteric loop was patent. The scope was then retroflexed and the area around the cardia and the fundus appeared to be within normal limits. Scattered polyps were noted and the gastric stump and biopsies were obtained. The scope was then subsequently withdrawn. The patient tolerated the procedure well. IMPRESSION: 1. Normal esophagus. 2. Status post gastrectomy without anastomosis approximately 10 cm from the incisors. 3. Anastomosis was intact with minimal focal nodularity. 4. Biopsies were obtained. 5. Several polyps, gastric stump, biopsies obtained. PLAN: 1. Follow up histology. 2. Continue Protonix 40 mg one p.o. a.c. b.i.d. 3. Initiate Reglan 10 mg one p.o. a.c. t.i.d. and at bedtime. 4. Carafate 1 g p.o. a.c. t.i.d. and at bedtime. French Casillas MD [facility] /[id number] cc: Trell Forde MD
== END | disposition home or self-care (01) ==
LOC: OR 07:17
PROVIDERS: ATTEND Internal Medicine Gastroenterology
DX: K29.50 Unspecified chronic gastritis without bleeding (principal); K31.7 Polyp of stomach and duodenum; K31.89 Other diseases of stomach and duodenum; K21.9 Gastro-esophageal reflux disease without esophagitis; Z85.028 Personal history of other malignant neoplasm of stomach; C50.919 Malignant neoplasm of unspecified site of unspecified female breast; Z90.3 Acquired absence of stomach [part of]; R19.7 Diarrhea, unspecified; D50.9 Iron deficiency anemia, unspecified; G47.33 Obstructive sleep apnea (adult) (pediatric); I10 Essential (primary) hypertension; E11.9 Type 2 diabetes mellitus without complications; G89.29 Other chronic pain; M19.90 Unspecified osteoarthritis, unspecified site; Z01.810 Encounter for preprocedural cardiovascular examination; Z79.02 Long term (current) use of antithrombotics/antiplatelets; Z79.84 Long term (current) use of oral hypoglycemic drugs; Z86.718 Personal history of other venous thrombosis and embolism
CPT/HCPCS: 36415; 43239; 82948; 93005; J2001; J2250; J2704; J2765; J3010

== ENCOUNTER → 2019-07-20 | Day surgery (SDC) | payer MEDICARE ==
[~2019-07-20] MED LIST changes: -FENTANYL CITRATE/PF 100MCG/2 ML INJ ONE; +GLUCAGON FOR INJ 1 MG VIAL ONE; +HYOSCYAMINE 0.125 MG TAB ONE; -LIDOCAINE HCL 2% LOCAL INJ 5 ML SDV VIAL INJ ONE; -METOCLOPRAMIDE HCL 10 MG/2ML VIAL ONE
[2019-07-20 09:00] VITALS: BP 129/76
--- NOTE | 2019-07-20 09:35 | Operative Report ---
DATE OF PROCEDURE: 07/20/2019 SURGEON: French Casillas MD PROCEDURE: Colonoscopy with polypectomy. INDICATIONS FOR COLONOSCOPY: Crampy lower abdominal pain, chronic diarrhea, fecal urgency, blood in stool. MEDICATIONS: The patient was done under MAC. Please see anesthesiologist's note. PROCEDURE IN DETAIL: With the patient in left lateral decubitus position, a flexible fiberoptic Olympus colonoscope was inserted into the rectum with ease and advanced all the way to the ileocolic anastomosis. Ileocolic anastomosis was patent. The scope was advanced into the small bowel and biopsies were obtained. The scope was then withdrawn back into the colon. A minute polyp was noted just proximal to the anastomosis that was removed per the hot biopsy forceps. The rest of the transverse descending sigmoid and rectum appeared to be within normal limits. The scope was then retroflexed into the distal rectum. Small internal hemorrhoids were noted and none of which was actively bleeding. The scope was then straightened out, and it was subsequently withdrawn. The patient tolerated the procedure well. IMPRESSION: 1. Ileocolic anastomosis intact. 2. Polyp, minute, distal transverse colon removed by hot biopsy forceps. 3. Internal hemorrhoids, none actively bleeding. PLAN: Follow up histology. Initiate Bentyl 20 mg one p.o. t.i.d. If diarrhea persist, the patient might benefit from changing her metformin to another drug. The patient will need a capsule endoscopy to rule out small bowel pathology. I repeat the patient will need a capsule endoscopy to rule out small bowel pathology that might be responsible for anemia. The patient might benefit from a followup colonoscopy in 5 years. French Casillas MD [facility] [place] /[id number] cc: Trell Forde MD
== END | disposition home or self-care (01) ==
LOC: OR 05:57
PROVIDERS: ATTEND Internal Medicine Gastroenterology
DX: K52.9 Noninfective gastroenteritis and colitis, unspecified (principal); K63.5 Polyp of colon; Z98.0 Intestinal bypass and anastomosis status; K64.8 Other hemorrhoids; K21.9 Gastro-esophageal reflux disease without esophagitis; D64.9 Anemia, unspecified; G47.33 Obstructive sleep apnea (adult) (pediatric); E11.9 Type 2 diabetes mellitus without complications; I10 Essential (primary) hypertension; M19.90 Unspecified osteoarthritis, unspecified site; G89.29 Other chronic pain; Z79.84 Long term (current) use of oral hypoglycemic drugs; Z79.02 Long term (current) use of antithrombotics/antiplatelets; Z90.3 Acquired absence of stomach [part of]; Z68.30 Body mass index [BMI] 30.0-30.9, adult; Z85.3 Personal history of malignant neoplasm of breast; Z85.028 Personal history of other malignant neoplasm of stomach; Z86.718 Personal history of other venous thrombosis and embolism
CPT/HCPCS: 36415; 45380; 45384; 82948; J1610; J2250; J2704; 45378

== ENCOUNTER → 2022-06-16 | Outpatient (CLI) | payer MEDICARE, OTHER ==
[~2022-06-16] MED LIST changes: -GLUCAGON FOR INJ 1 MG VIAL ONE; -HYOSCYAMINE 0.125 MG TAB ONE; -MIDAZOLAM HCL 2 MG/2 ML VIAL ONE; -PROPOFOL IV EMULSION 10 MG/ML 50 ML VIAL ONE
== END ==
LOC: US 09:54
PROVIDERS: ATTEND Nurse Practitioner
DX: R10.11 Right upper quadrant pain (principal); K29.70 Gastritis, unspecified, without bleeding
CPT/HCPCS: 76700; 78227; A9537